=== PATIENT | female | born 1965 | race Caucasian/White ===

== ENCOUNTER → 2020-07-13 15:14 | Outpatient (CLI) | payer OTHER, SELFPAY ==
--- NOTE | ~2020-07-13 | XR_ITS ---
EXAMINATION: XR chest 2V EXAM DATE: 07/13/2020 15:38 INDICATION: Shortness of breath, pain in back, chest tightness. TECHNIQUE: Frontal and lateral projections of the chest obtained and reviewed. There is no prior tim dy for comparison. FINDINGS: Severe chronic hyper inflation. The lungs are clear. There are no pleural effusions. The cardiomediastinal silhouette is within normal limits. There is no pneumothorax suspected. The bone s and soft tissues are unremarkable. IMPRESSION: 1. No acute cardiopulmonary findings. 2. Hyperinflation. Reviewed, dictated and finalized at location B.
== END ==
PROVIDERS: PCP Family Medicine Adolescent Medicine; Visit Provider Physician Assistant
DX: R06.02 Shortness of breath (principal); R91.8 Other nonspecific abnormal finding of lung field
CPT/HCPCS: 71046

== ENCOUNTER 2020-08-15 09:45 | Outpatient (CLI) | payer OTHER, SELFPAY ==
--- NOTE | 2020-08-22 09:26 | WPDPFTINT ---
PFT Interpretation PFT Interpretation: This PFT met all criteria for ATS standards and reproducibility FEV/FVC post bronchodilator 78% of predicted FEV1 103% or 2.79 liters FVC 100% or 3.57 liters TLC 102% or 5.69 liters RV 102% RV/TLC 36% DLCO 93% or 18.8 liters when adjusted for alveolar volume but not adjusted for hemoglobin Flow volume loops were normal Impression: Normal PFT. Clinical correlation is advised.
== END 2020-08-15 09:46 | disposition home or self-care (01) ==
LOC: ANHPFT 09:48
PROVIDERS: PCP Family Medicine Adolescent Medicine; Visit Provider Physician Assistant
DX: R06.02 Shortness of breath (principal)
CPT/HCPCS: 94060; 94726; 94729

== ENCOUNTER 2020-11-07 17:02 | Outpatient (CLI) | payer OTHER, SELFPAY ==
--- NOTE | ~2020-11-07 | CT_ITS ---
EXAMINATION: CTA chest PE protocol EXAM DATE: 11/07/2020 17:53 INDICATION: Dyspnea, left-sided chest pain. TECHNIQUE: Spiral CTA of the chest (pulmonary arteries) was performed with 100 cc Omnipaque 350 intr avenous contrast injection. Images were acquired during the pulmonary arterial phase. Coronal maxi mum intensity projection 3D-reconstructions were created by the technologist on dedicated workstation . Axial, coronal and sagittal reformatted images were reviewed. The dose-length product (DLP) for t his examination was 192.95 mGy-cm. The exposure was tailored according to patient size (auto mA exp osure control), and iterative reconstruction (ASIR) was used as additional dose reduction technique. There is no prior study for comparison. FINDINGS: There are no pulmonary emboli. Mildly aneurysmal ascending aorta at 4.1 cm. No thoracic a ortic dissection. Several punctate right lower lobe granulomata. The lungs are otherwise clear. Th ere are no pleural or pericardial effusions. Tracheobronchial tree is patent. There is no mediast inal, hilar or axillary lymphadenopathy. There is no pneumothorax. Heart normal in size. No heydi dence of coronary arterial calcification. Upper abdomen is unremarkable. The bones are unremarkabl e. IMPRESSION: 1. Mildly aneurysmal ascending aorta. 2. No pulmonary emboli or other acute findings. Reviewed, dictated and finalized at location A. ICAL DEPENDENCY NURSE
[2020-11-07 17:45] LABS: Anion Gap 2 mmol/L (8-16); Blood Urea Nitrogen 13 mg/dL (7-17); CRP < 0.5 mg/dL (<1.0); Calcium 9.1 mg/dL (8.4-10.2); Carbon Dioxide 33 mmol/L (22-30); Chloride 103 mmol/L (98-107); Estimated Glomerular Filt Rate > 60; Glucose 137 mg/dL (65-105); Potassium 3.7 mmol/L (3.4-5.0); Sodium 138 mmol/L (137-145)
[2020-11-07 17:57] LABS: Erythrocyte Sedimentation Rate 20 mm/hr (0-20)
== END 2020-11-07 17:03 | disposition home or self-care (01) ==
PROVIDERS: PCP Family Medicine Adolescent Medicine; Visit Provider Family Medicine Adolescent Medicine
DX: R07.89 Other chest pain (principal); R06.00 Dyspnea, unspecified; I71.4 Abdominal aortic aneurysm, without rupture; R07.1 Chest pain on breathing; R06.02 Shortness of breath; S42.309A Unspecified fracture of shaft of humerus, unspecified arm, initial encounter for closed fracture
CPT/HCPCS: 36415; 71275; 80048; 85652; 86140; Q9967

== ENCOUNTER 2020-11-13 21:42 | Emergency (ER) | payer OTHER, SELFPAY ==
--- NOTE | ~2020-11-13 | XR_ITS ---
EXAMINATION: XR chest 1V portable 11/13/2020 22:16 INDICATION: Shortness of breath and fever PROCEDURE: AP portable chest COMPARISON: 07/13/2020 FINDINGS: The lungs are clear. The cardiomediastinal silhouette is within normal limits. There are no pleural effusions. There is no pneumothorax suspected. IMPRESSION: 1: NO ACUTE CARDIOPULMONARY DISEASE. Reviewed, dictated and finalized at location A. RUBBER MOLDER
[2020-11-13 21:52] VITALS: BP 131/78; PULSE 64; RESP 18; TEMP 37.1; O2SAT 96
[2020-11-13 21:59] VITALS: RESP 18
--- NOTE | 2020-11-13 22:02 | ED.GENADULT ---
HPI - General Adult General Chief complaint: Nausea/Vomiting/Diarrhea Stated complaint: I got the flu or something worse Time Seen by Provider: 11/13/20 21:53 Source: patient History of Present Illness HPI narrative: Patient is a 55 y/o female complaining mild SOB starting this morning. There is no alleviating or exacerbating factor. She also has multiple other symptoms including bilateral frontal headache, slight cough, nausea and diarrhea. She has no chest pain or abdominal pain. Related Data Home Medications Medication Instructions Recorded Confirmed levothyroxine 75 mcg tablet 0.75 mcg PO DAILY tablet 10/03/20 10/03/20 Allergies Allergy/AdvReac Type Severity Reaction Status Date / Time No Known Allergies Allergy Mild Verified 11/13/20 22:01 Review of Systems Constitutional: Constitutional: Reports chills, Reports fever(s), Reports headache(s) and Denies weakness Eyes: Eyes: Denies blurry vision ENT: Reports headache(s) and Denies neck pain Cardiovascular: Cardiovascular: Denies chest pain and Reports dyspnea Respiratory: Respiratory: Reports cough and Reports dyspnea Gastrointestinal: Gastrointestinal: Denies abdominal pain, Reports diarrhea, Reports nausea and Denies vomiting Genitourinary: Genitourinary: Denies hematuria and Denies dysuria Musculoskeletal: Musculoskeletal: Denies back pain and Denies neck pain Neurologic: Reports headache(s) and Denies weakness [facility] Social History Social History Smoking status: Former smoker Tobacco type: cigarettes Exam Const: General: no acute distress and well developed Orientation/consciousness: oriented to person, oriented to place, oriented to time and patient oriented x3 HENMT: Head: normocephalic Ears: external ears normal General nose exam: Normal external nose present Eyes: General: appearance normal, both eyes and all related structures Conjunctivae: conjunctivae normal Neck: Neck: normal visual inspection and full ROM Chest: Chest palpation & inspection: normal inspection of the chest and no tenderness Resp: Effort & Inspection: normal respiratory effort Auscultation: clear to auscultation bilaterally Cardio: Rate: regular rate Rhythm: regular rhythm GI: GI Palp: No abdominal tenderness and Yes Soft to palpation Skin: General skin exam: normal color and turgor normal Neuro: General: oriented to person, oriented to place, oriented to time and patient oriented x3 Cognition (Neuro): normal cognition Extrem: General: normal to inspection, full ROM and no pedal edema Psych: Appearance: grossly normal Mental Status: mental status grossly normal Affect: normal affect Course Vital Signs Vital signs: Vital Signs Temperature 37.1 C 11/13/20 21:52 Pulse Rate 64 11/13/20 21:52 Respiratory Rate 18 11/13/20 21:52 Blood Pressure 131/78 11/13/20 21:52 Pulse Oximetry 96 11/13/20 21:52 Temperature 37.3 C 11/13/20 23:51 Pulse Rate 74 11/13/20 23:51 Respiratory Rate 16 11/13/20 23:51 Blood Pressure 126/69 11/13/20 23:51 Pulse Oximetry 96 11/13/20 23:51 Medical Decision Making Vital Signs Vital Signs: Vital Signs Temperature 37.1 C 11/13/20 21:52 Pulse Rate 64 11/13/20 21:52 Respiratory Rate 18 11/13/20 21:52 Blood Pressure 131/78 11/13/20 21:52 Pulse Oximetry 96 11/13/20 21:52 Temperature 37.3 C 11/13/20 23:51 Pulse Rate 74 11/13/20 23:51 Respiratory Rate 16 11/13/20 23:51 Blood Pressure 126/69 11/13/20 23:51 Pulse Oximetry 96 11/13/20 23:51 Lab Data Result diagrams: 11/13/20 22:12 11/13/20 22:12 Labs: Lab Results 11/13/20 11/13/20 11/13/20 Range/Units 22:12 22:12 22:18 WBC 5.2 (4.5-10.0) K/mm3 RBC 3.94 L (4.2-5.4) M/mm3 Hgb 12.4 (12.0-15.0) g/dL Hct 35.3 L (37.0-47.0) % MCV 89.6 (80-100) fl MCH 31.5 (26-34) pg MCHC 35.1 (32-
[2020-11-13 22:18] LABS: Basophils Percent Auto 0.2 % (0.2-1.2); Eosinophils Absolute Auto 0.1 K/mm3 (0-0.3); Eosinophils Percent Auto 1.5 % (0-4.4); Hematocrit 35.3 % (37.0-47.0); Hemoglobin 12.4 g/dL (12.0-15.0); Immature Granulocyte Absolute 0.02 K/mm3 (0.00-0.031); Immature Granulocyte Percent A 0.4 % (0-0.5); Lymphocytes Absolute Auto 1.54 K/mm3 (0.9-3.2); Lymphocytes Percent Auto 29.5 % (18.3-44.2); Mean Corpuscular HGB Conc 35.1 g/dl (32-36); Mean Corpuscular Hemoglobin 31.5 pg (26-34); Mean Corpuscular Volume 89.6 fl (80-100); Mean Platelet Volume 9.1 fl (7.4-10.4); Monocytes Absolute Auto 0.4 K/mm3 (0.1-0.6); Monocytes Percent Auto 6.7 % (2.6-8.5); Neutrophils Absolute Auto 3.2 K/mm3 (1.3-6.7); Neutrophils Percent Auto 61.7 % (45.5-73.1); Platelet Count Result 210 k/mm3 (150-375); Red Blood Count 3.94 M/mm3 (4.2-5.4); Red Cell Distribution Width 12.3 % (11.5-14.5); White Blood Count 5.2 K/mm3 (4.5-10.0)
[2020-11-13] MEDS: KETOROLAC 30 MG/ML VIAL (*BKC) IV PUSH (22:19)
[2020-11-13] MEDS: METOCLOPRAMIDE HCL INJ 10 MG/2 ML VIAL IV PUSH (22:19)
[2020-11-13] MEDS: diphenhydrAMINE HCl INJ 50 MG/ML VIAL 25 MG IV PUSH (22:19)
[2020-11-13] MEDS: SODIUM CHLORIDE 0.9% IV 1,000 ML 999 ML IV CONT (22:20)
[2020-11-13 22:30] LABS: Alanine Aminotransferase 13 U/L (4-35); Albumin Level 3.9 g/dL (3.5-5.1); Alkaline Phosphatase 77 U/L (38-126); Anion Gap 5 mmol/L (8-16); Aspartate Amino Transferase 24 U/L (14-36); Bilirubin,Total 0.6 mg/dL (0.2-1.3); Blood Urea Nitrogen 9 mg/dL (7-17); Calcium 9.2 mg/dL (8.4-10.2); Carbon Dioxide 29 mmol/L (22-30); Chloride 99 mmol/L (98-107); Estimated CRCL calculation 74 ml/min; Estimated Glomerular Filt Rate > 60; Glucose 103 mg/dL (65-105); Potassium 3.6 mmol/L (3.4-5.0); Sodium 133 mmol/L (137-145)
[2020-11-13 23:14] LABS: Add Urine Microscopic? YES; Appearance Urine Clear (Clear); Bilirubin Urine Negative (Negative); Blood Urine Negative (Negative); Color Urine Straw (Yellow); Glucose Urine UA Negative (Negative); Ketones Urine Trace mg/dL (Negative); Leukocyte Esterase Ur Trace LEU/UL (Negative); Nitrate Urine Negative (Negative); Protein Urine Negative (Negative); Specific Grav Ur 1.008 (1.001-1.035); Squamous Epithelial Cell Urine Rare /hpf (Few); Urobilinogen Urine Negative mg/dL (<2.0)
[2020-11-13 23:51] VITALS: BP 126/69; PULSE 74; RESP 16; TEMP 37.3; O2SAT 96
[2020-11-14 16:30] LABS: SARS-CoV-2 RNA PCR Positive
== END 2020-11-13 23:53 | disposition home or self-care (01) ==
PROVIDERS: Emergency Provider Emergency Medicine; PCP Family Medicine Adolescent Medicine
DX: U07.1 COVID-19 (principal); J10.1 Influenza due to other identified influenza virus with other respiratory manifestations
CPT/HCPCS: 36415; 71045; 80053; 81001; 85025; 87635; 87804; 96361; 96374; 96375; 99284; C9803; J1200; J1885; J2765; J7030; U0003

== ENCOUNTER 2021-01-02 08:55 | Outpatient (CLI) | payer OTHER, SELFPAY ==
--- NOTE | 2021-01-03 16:13 | WPDPFTINT ---
PFT Interpretation This is a methacholine challenge test. The test was performed and interpreted in accordance with the 1999 [place] [employer] guidelines. The test was performed with increasing doses of nebulized methacholine using a 2 minute tidal breathing protocol. The best post-methacholine FEV1 values were used to calculate the change from the post diluent FEV1. Findings: Baseline FEV1 2.64 L, 98% predicted. Post diluent FEV1 2.62 L Post 0.025 mg/ml methacholine FEV1 2.70 L, increased 3% Post 0.25 mg/mL methacholine FEV1 2.73 L, increased 4% Post 2.5 mg/mL methacholine FEV1 2.70 L, increased 3% Post 10 mg/mL methacholine FEV1 2.52 L, decreased 4% Post 25 mg/mL methacholine FEV1 2.45 L, decreased 6% Post albuterol nebulization FEV1 2.59 L Impression: The PC20 is >25 mg/ml which is categorized as normal bronchial responsiveness. There are no prior methacholine challenge studies for comparison
== END 2021-01-02 08:56 | disposition home or self-care (01) ==
PROVIDERS: PCP Family Medicine Adolescent Medicine; Visit Provider Internal Medicine Critical Care Medicine
DX: R06.02 Shortness of breath (principal)
CPT/HCPCS: 94070; J7674

== ENCOUNTER 2022-06-11 13:08 | Outpatient (CLI) | payer OTHER, SELFPAY ==
--- NOTE | ~2022-06-11 | MM_ITS ---
EXAMINATION: MM scrn julio c implant BI w tyson HISTORY: Screening mammogram TECHNIQUE: Craniocaudal and mediolateral oblique 3-D tomosynthesis images with implant displacement a nd synthetic 2-D images were generated. Craniocaudal and mediolateral oblique views of the breasts wi thout implant displacement were obtained using full field digital mammography. CAD analysis was submi tted and interpreted. COMPARISON: 12/05/2013 BREAST PARENCHYMAL COMPOSITION: Breast composed of scattered areas of fibroglandular density. There i s bilateral breast implants. FINDINGS: There is no evidence of suspicious mass, calcification, or architectural distortion to sugg est malignancy in either breast. There has been no suspicious interval change. IMPRESSION: 1. No mammographic evidence of malignancy. 2. Recommend routine screening mammography in one year. BI-RADS Category 1: Negative Reviewed, dictated and finalized at location A.
== END 2022-06-11 13:09 | disposition home or self-care (01) ==
LOC: ANHIMG 13:10
PROVIDERS: PCP Family Medicine Adolescent Medicine; Visit Provider Family Medicine Adolescent Medicine
DX: Z12.31 Encounter for screening mammogram for malignant neoplasm of breast (principal)
CPT/HCPCS: 77063; 77067

== ENCOUNTER → 2023-02-05 11:45 | Outpatient (CLI) | payer OTHER, SELFPAY ==
--- NOTE | ~2023-02-05 | CT_ITS ---
EXAMINATION: CT chest high resolution wo co DATE: 02/05/2023 12:03 INDICATION: Thoracic aortic aneurysm. Shortness of breath. Chest pain. TECHNIQUE: Computed tomography (CT) of the chest was performed without intravenous contrast. The dose -length product was 134.32 mGy-cm. Automated exposure control and iterative reconstruction technique were employed. COMPARISON: CT dated 11/07/2021 FINDINGS: No significant pleural or pericardial effusion. Heart size normal. There is mild aneurysmal dilation of the ascending thoracic aorta measuring 4.4 x 4.4 cm greatest axial dimension at the leve l of the pulmonary veins. No significant lymphadenopathy. There are bilateral breast implants. Upper abdomen is unremarkable. No endobronchial lesions. No pneumothorax. There is a 2 mm nodule in the rig ht upper lobe, likely benign. There are a few small calcified granulomas. There is a 2 mm nodule in t he right middle lobe. There is a 3 mm right lower lobe nodule, image 70. Mild thoracic spondylosis. IMPRESSION: 1. Ascending thoracic aortic aneurysm measuring 4.4 cm. 2: Small bilateral pulmonary nodules measuring 3 mm or less, likely benign. Consider follow-up low d ose CT chest 12 months. Reviewed, dictated and finalized at location A. IMPRESSION: 1. Ascending thoracic aortic aneurysm measuring 4.4 cm. 2: Small bilateral pulmonary nodules measuring 3 mm or less, likely benign. Co nsider follow-up low dose CT chest 12 months.
== END ==
PROVIDERS: PCP Family Medicine Adolescent Medicine; Visit Provider Family Medicine Adolescent Medicine
DX: I71.20 Thoracic aortic aneurysm, without rupture, unspecified (principal); R91.8 Other nonspecific abnormal finding of lung field
CPT/HCPCS: 71250

== ENCOUNTER 2025-03-08 15:27 | Outpatient (CLI) | payer OTHER, SELFPAY ==
--- NOTE | ~2025-03-08 | MM_ITS ---
EXAMINATION: MM scrn julio c implant BI w tyson HISTORY: Screening mammogram TECHNIQUE: Craniocaudal and mediolateral oblique 3-D tomosynthesis images with implant displacement a nd synthetic 2-D images were generated. Craniocaudal and mediolateral oblique views of the breasts wi thout implant displacement were obtained using full field digital mammography. CAD analysis was submi tted and interpreted. COMPARISON: Comparison to multiple prior studies sequentially, with oldest reviewed study dated 04/08. BREAST PARENCHYMAL COMPOSITION: Dense: The breasts are heterogeneously dense, which may obscure small masses FINDINGS: There is no evidence of suspicious mass, calcification, or architectural distortion to sugg est malignancy in either breast. There has been no suspicious interval change. IMPRESSION: 1. No mammographic evidence of malignancy. 2. Recommend routine screening mammography in one year. BI-RADS Category 1: Negative Reviewed, dictated and finalized at location B.
--- OUTSIDE RECORDS SUMMARY | 2025-03-08 16:37 | XMS_ITS | Referral Summary ---
Author Organization [facility] Address [address] [place] [address] Care Team Providers Care Regional Clinical Research Associate Name Role Phone Ranjit Vera MD Primary Care Prov ider Allergies No known active allergies Medications levothyroxine (SYNTHROID) 75 mcg tablet Take 0.5 tablets (37.5 mcg total) by mouth magnetic observer before breakfast 0 Active ascorbic acid (ascorbic acid with jonelle hips) 500 mg tablet,chewable Take 1 tablet/chew tab (500 mg total) by mouth daily Active ascorbic acid-vitamin E-biotin 7.5-7.5-1,250 mg-unit-mcg tablet,chewable Take by mouth Active acidophilus-pec tin, citrus 100 million cell-10 mg capsule Take by mouth Activ e Active Problems Problem Noted Date Diagnosed Date PVC's (premature ventricular contractions) 10/21 SOB (shortness of breath) 10/21/2023 Family history of sudden in grandfather Prolonged Q-T interval on ECG 10/21/2023 Ascending aortic aneurysm 02/26/2023 Palpitations 02/24/2023 Chest pain, atypical 02/24/2023 Anxiety 02/24/2023 Idiopathic peripheral neuropathy 07/09/2020 Assessment & Plan (07/09/2020 1:51 PM CDT): Patient has a history of peripheral neuropathy manifest subjectively as paresthesia in her limbs, subjective fatigue, and subjective intermittent imbalance. She reports having had a complete evaluation by me a [facility] within the past 1-2 years. Those records have been requested, although unavailable for review today. Her examination neurologically today is normal save for absent bilateral ankle jerks. She is not interested at this time in taking any medication to suppress the paresthesia. I did explain to her that her other complaints are common with neuropathy, but unfortunately do not have any medicinal remedy. Observation from the neurological standpoint at this time is most appropriate. I will be seeing her back in the office as needed. Numbness and tingling of both lower extremities 07/09/2020 Assessment & Plan (07/09/2020 1:52 PM CDT): I explained the patient the paresthesias are a common manifestation of peripheral neuropathy. I offered her a trial of medication, but she declines any pharmaceutical intervention at this time. If her symptoms would worsen or change I would be happy to see her back for re-evaluation. Otherwise I will plan on seeing her back on an as-needed basis. Resolved Problems Problem Noted Date Diagnosed Date Resolved Date Abnormal CT scan, chest 02/24/2023 040 04/2023 Social History Tobacco Use Types Packs/Day Years Used Date Smoking Tobacco: Former Smokeless Tobacco: Never Tobacco Cessation:Counseling Given: Not Answered Comments Unknown Sex and Gender Information Value Date Recorded Sex Assigned at Not on file Legal Sex Female 3:12 PM CDT Gender Identity Not on file Sexual Orientation Not on file Last Filed Vital Signs Vital Sign Reading Time Taken Comments Blood Pressure 124/77 09/22/2024 3:25 PM CDT Pulse 64 09/13/2024 10:42 AM CDT Temperature 37.4 C (99.3 F) 07/09/2020 1:12 PM CDT Respiratory Rate - - Oxygen Saturation 97% 09/13/2024 10:42 AM CDT Inhaled Oxygen Concentration - - Weight 56.7 kg (125 lb) 09/13/2024 10:42 AM CDT Height 170.2 cm (5' 7 ) 09/13/2024 10:42 AM CDT Body Mass Index 19.58 09/13/2024 10:42 AM CDT Plan of Treatment Not on file Insurance [facility] [employer] [facility] [employer] - [employer] OPEN ACCESS [facility] [employer] Care Teams Regional Clinical Research Associate Relationship Specialty Start Date End Date Ranjit Vera MD [address] [place] [address] PCP - General Family Medicine 02/24/23
--- OUTSIDE RECORDS SUMMARY | 2025-03-08 16:37 | XMS_ITS | Clinical Summary ---
Author Organization [facility] Address [address] [place] [address] Care Team Providers Care Portable Sawmill Operator Name Role Phone Ranjit Vera MD Primary Care Prov ider Allergies No known active allergies Medications levothyroxine (SYNTHROID) 75 mcg tablet Take 0.5 tablets (37.5 mcg total) by mouth nuclear weapons specialist before breakfast 0 Active ascorbic acid (ascorbic [...] had a complete evaluation by me a [facility] within the past 1-2 years. Those [...] Abnormal CT scan, chest 02/24/2023 040 04/2023 Surgical History Surgery Date Site/Laterality Comments ORAL SURGERY Medical History Medical History Date Comments Neuropathy Family History Medical History Relation Name Comments Atrial fibrillation Brother 1 Stroke Brother 1 No Known Problems Brother 2 No Known Problems Brother 3 Heart failure Father Hypertension Father Stroke Father pacemaker Father Sudden Cardiac Maternal Grandfather One of her grandfathers diedin his sleep in his 50's, presumed [place], no known prior heart dz. Atrial fibrillation Mother Hypertension Mother Emphysema Sister Relation Name Status Comments Brother 1 Alive Brother 2 Alive Brother 3 Alive Father Maternal Grandfather Mother Alive Sister Alive Social History Tobacco Use Types Packs/Day Years Used Date Smoking Tobacco: Former Smokeless Tobacco: Never Tobacco Cessation:Counseling Given: Not Answered Comments Unknown Sex and Gender Information Value Date Recorded Sex Assigned at Not on file Legal Sex Female 3:12 PM CDT Gender Identity Not on file Sexual Orientation Not on file Obstetrics History Last Filed Vital Signs Vital Sign Reading [...] 09/13/2024 10:42 AM CDT Plan of Treatment Health Maintenance Due Date Last Done Comments Breast Cancer Screening-Mammogram 1967 Cervical Cancer Screening 1967 Colon Cancer Screening-Colonoscopy 1967 Depression Screening 1967 Hepatitis C Screening 1967 DTaP/Tdap/Td Vaccine (1 - Tdap) 1978 Hepatitis B Screening 1985 Regular Well Visit/Exam 18-64 1985 Zoster Vaccine (1 of 2) 2017 Influenza Vaccine (#1) 2024 08/31/2019 Pneumococcal vaccine <65 Aged Out No longer eligible based on patient's age to complete this topic Insurance [facility] [employer] [facility] [place] [employer]/PPO Address: [address] [place] [id number] [email or web address] OPEN ACCESS [facility] [place] H[employer]/PPO Address: [address] [phone] [facility] [place] [facility]PPO Address: [facility] [address] [place] [address] [facility] [employer] Care Teams Portable Sawmill Operator Relationship Specialty Start Date End Date Ranjit Vera MD [address] [place] [address] PCP - General Family Medicine 02/24/23
--- OUTSIDE RECORDS SUMMARY | 2025-03-08 16:37 | XMS_ITS | Encounter Summary ---
Author Organization [facility] Address [address] [place] [address] Care Team Providers Care Instrument Operator Name Role Phone Ranjit Vera MD Primary Care Prov ider Unknown, Notinfile Primary Care Provider Unavail able Lauren Allison PT Unavailable Unavailable Luis Taveras MD Unavailable [phone] Ranjit Vera MD Primary Care Prov ider Encounter Details Date Type Department Care Team (Late st Contact Info) Description 02/06/2017 Orders Only [facility] ProviderIgnacio MD [address] [place] [id number] Social History Tobacco Use Types Packs/Day Years Used Date Smoking Tobacco: Never Assessed Comments Unknown Sex and Gender Information Value Date Recorded Sex Assigned at Not on file Legal Sex Female 3:12 PM CDT Gender Identity Not on file Sexual Orientation Not on file documented as of this encounter Plan of Treatment Not on file documented as of this encounter Procedures Procedure Name Priority Date/Time Associated Diagnosis Comments CARDIOLOGY REPORT 02/06/2017 documented in this encounter Results * CARDIOLOGY REPORT (02/06/2017) Anatomical Region Laterality Modality Other Narrative 02/06/2017 Ordered by an unspecified provider. Historical Provider [facility] CARLEY HARRIS Final Result documented in this encounter Visit Diagnoses Not on filedocumented in this encounter Care Teams Instrument Operator Relationship Specialty Start Date End Date Ranjit Vera MD [address] [place] [address] PCP - General 02/20/17 12/04/20 Unknown, Notinfile PCP - General 12/05/20 02/23/23 Ranjit Vera MD [address] [place] [address] PCP - General Family Medicine 02/24/23 [place] PT Physical Therapist Physical Therapy 12/06/20 01/01/21 Luis Taveras MD [address] [place] [address] Referring Physician Orthopedic Surgery 12/06/20 01/01/21 documented as of this encounter
== END 2025-03-08 15:28 | disposition home or self-care (01) ==
LOC: ANHIMG 15:29
PROVIDERS: PCP Family Medicine Adolescent Medicine; Visit Provider Family Medicine Adolescent Medicine
DX: Z12.31 Encounter for screening mammogram for malignant neoplasm of breast (principal)
CPT/HCPCS: 77063; 77067